=== PATIENT | female | born 1995 | race Caucasian/White ===

== ENCOUNTER → 2016-09-01 | Outpatient (CLI) | payer BC, OTHER ==
--- NOTE | 2016-09-01 19:20 | DIAGNOSTIC IMAGING REPORT ---
MRI OF THE LEFT KNEE WITHOUT CONTRAST CLINICAL HISTORY: Left knee pain following injury. Status post ACL reconstruction. COMPARISON STUDY: MRI of the left knee February 04, 2015. TECHNIQUE: Utilizing a 1.5 Francesca magnet and dedicated coil, multiplanar, multiecho imaging of the left knee was performed without intravenous or intraarticular contrast. FINDINGS: Alignment of the left knee is anatomic. Extensor mechanism is intact. There is a trace left knee joint effusion. The posterior cruciate ligament is intact. There are findings consistent with an ACL reconstruction. There is indistinctness of the mid to distal fibers of the ACL graft. The medial collateral ligament and lateral collateral ligament complex are intact. No lateral meniscal tear is identified. There is a complex tear of the body and posterior horn the medial meniscus which was shown on exam of February 04, 2015. No high-grade chondrosis is noted. An old impaction injury of the lateral femoral condyle is present. IMPRESSION: 1. Indistinctness of the mid to distal fibers of the ACL graft. The findings suggest at least partial-thickness tear of the graft. 2. Trace left knee joint effusion. 3. Tear of the body and posterior horn the medial meniscus which is likely old. Electronically signed by: Tj Palafox M.D. 09/01/2016 7:18 PM Dictated Date/Time: 09/01/2016 6:50 PM
== END | disposition home or self-care (01) ==
LOC: C.MRIBC 17:01
PROVIDERS: ATTEND Family Medicine
DX: S83.242A Other tear of medial meniscus, current injury, left knee, initial encounter (principal); X58.XXXA Exposure to other specified factors, initial encounter